=== PATIENT | male | born 1985 | race Caucasian/White ===

== ENCOUNTER → 2024-11-15 14:22 | Outpatient (CLI) | payer OTHER, SELFPAY ==
--- NOTE | 2024-11-15 14:27 | DI.RAD.S_ITS ---
PROCEDURE: XR HAND LT MIN 3V INDICATIONS: Fracture of unspecified phalanx of left little finger, initi TECHNIQUE: 3 views of the hand(s) acquired. COMPARISON: October 19, 2024. FINDINGS: Bones: No fractures or dislocations. Carpal bones are normally aligned. No suspicious bony lesions. Soft tissues: Stable appearing increased soft tissue prominence along the posteromedial margin of the base of the 5th proximal phalanx. No suspicious soft tissue calcifications. IMPRESSION: No acute bony abnormality. Stable appearing increased soft tissue prominence at the posteromedial margin of the base of the fifth proximal phalanx. Dictated by: Maycol Oneal M.D. on 11/17/2024 at 0:09 Approved by: Maycol Oneal M.D. on 11/17/2024 at 0:13
== END ==
PROVIDERS: PCP Student in an Organized Health Care Education/Training Program; Referring Provider Chiropractor; Visit Provider Chiropractor
DX: S62.607A Fracture of unspecified phalanx of left little finger, initial encounter for closed fracture (principal); X58.XXXA Exposure to other specified factors, initial encounter
CPT/HCPCS: 73130